=== PATIENT | male | born 2000 | race Caucasian/White ===

== ENCOUNTER 2023-08-05 05:41 | Emergency (ER) | payer OTHER ==
[~2023-08-05] VITALS: Ht 175.3 cm; Wt 89.0 kg
[2023-08-05 07:07] VITALS: BP 124/69; TEMP 98.2; O2SAT 100
[2023-08-05] MEDS: IBUPROFEN 800 MG TAB PO ONE (07:07)
== END 2023-08-05 07:10 | disposition home or self-care (01) ==
LOC: M ED 05:41
DX: S00.83XA Contusion of other part of head, initial encounter (principal); Y92.410 Unspecified street and highway as the place of occurrence of the external cause; Y93.9 Activity, unspecified; Y99.9 Unspecified external cause status; Y04.2XXA Assault by strike against or bumped into by another person, initial encounter; F17.210 Nicotine dependence, cigarettes, uncomplicated; F10.10 Alcohol abuse, uncomplicated